=== PATIENT | female | born 1995 | race Caucasian/White ===

== ENCOUNTER 2024-06-16 13:33 | Emergency (ER) | payer MEDICAID ==
[~2024-06-16] VITALS: Ht 167.6 cm; Wt 72.6 kg
[2024-06-16 13:56] VITALS: BP_SYST 118; PULSE 95; RESP 22; TEMP 98.3; O2SAT 98
[2024-06-16 14:27] VITALS: BP_SYST 118; PULSE 95; RESP 22; TEMP 98.3; O2SAT 98
== END 2024-06-16 14:27 ==
LOC: SED 13:33
DX: Z02.89 Encounter for other administrative examinations (principal)
CPT/HCPCS: 99283